=== PATIENT | female | born 1990 | race Caucasian/White ===

== ENCOUNTER → 2017-04-07 08:35 | Outpatient (CLI) | payer OTHER, SELFPAY ==
--- NOTE | 2017-04-07 12:12 | XR_ITS ---
XR ankle RT min 3V HISTORY: Ankle pain ITS.REASON: FOOT PAIN ORDERING PHYSICIAN: Jailene Shea DPM PATIENT AGE: 27 years COMPARISON: None FINDINGS: Weightbearing views are performed No fracture or dislocation. No lytic or blastic change. There is normal mineralization.. The joint spaces are well-preserved. No significant degenerative/arthritic changes. No erosive changes evident. IMPRESSION: Negative ankle, no acute finding
--- NOTE | 2017-04-07 12:12 | XR_ITS ---
XR foot wt bearing LT 2V HISTORY: Foot pain ITS.REASON: FOOT PAIN ORDERING PHYSICIAN: Jailene Shea DPM PATIENT AGE: 27 years COMPARISON: None FINDINGS: Weightbearing views are performed No fracture or dislocation. No lytic or blastic change. There is normal mineralization.. The joint spaces are well-preserved. No significant degenerative/arthritic changes. No erosive changes evident. IMPRESSION: Negative, no acute finding
--- NOTE | 2017-04-07 12:12 | XR_ITS ---
XR foot wt bearing RT 2V HISTORY: Foot pain ORDERING PHYSICIAN: Jailene Shea DPM PATIENT AGE: 27 years COMPARISON: None FINDINGS: Weightbearing views performed No fracture or dislocation. No lytic or blastic change. There is normal mineralization.. The joint spaces are well-preserved. No significant degenerative/arthritic changes. No erosive changes evident. IMPRESSION: Negative, no acute finding
--- NOTE | 2017-04-07 12:12 | XR_ITS ---
XR ankle LT min 3V HISTORY: Ankle pain ITS.REASON: FOOT PAIN ORDERING PHYSICIAN: Jailene Shea DPM PATIENT AGE: 27 years COMPARISON: None FINDINGS: Weightbearing views are performed No fracture or dislocation. No lytic or blastic change. There is normal mineralization.. The joint spaces are well-preserved. No significant degenerative/arthritic changes. No erosive changes evident. IMPRESSION: Negative ankle, no acute finding
== END ==
PROVIDERS: Visit Provider Podiatrist
DX: M79.672 Pain in left foot (principal); M79.671 Pain in right foot
CPT/HCPCS: 73610; 73620

== ENCOUNTER → 2017-05-04 08:28 | Outpatient (CLI) | payer OTHER, SELFPAY ==
--- NOTE | 2017-05-04 08:34 | MR_ITS ---
MR ankle RT wo/w con HISTORY: Right ankle pain, painful to walk and with foot extension, pain laterally ITS.REASON: Right ankle pain ORDERING PHYSICIAN: Jailene Shea DPM PATIENT AGE: 27 years COMPARISON: Radiograph of 04/07/2017 TECHNIQUE: Standard multiplanar multiecho sequences are performed without and with gadolinium enhancement. FINDINGS: No abnormal bone marrow signal intensity is evident. No fracture or bone bruise. The talar dome has an unremarkable appearance. No ligamentous or tendinous injuries are apparent. Specifically, the anterior talofibular ligament does appear intact. There is a small ankle joint effusion with a small amount fluid along the anterior aspect of the ankle joint laterally. The anterior posterior tibiofibular ligaments appear intact. No soft tissue mass or other significant anomalies. No enhancing lesions or masses. IMPRESSION: There is a small ankle joint effusion mainly situated along the anterior aspect and lateral aspect of the ankle joint. Otherwise negative MRI of the ankle with no obvious ligamentous or tendinous abnormalities
== END ==
PROVIDERS: Family Provider Family Medicine; PCP Family Medicine; Visit Provider Podiatrist
DX: M25.571 Pain in right ankle and joints of right foot (principal); G89.29 Other chronic pain
CPT/HCPCS: 73723; A9576

== ENCOUNTER 2017-05-19 16:30 | Outpatient (RCR) | payer OTHER, SELFPAY ==
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
== END 2017-05-19 16:31 | disposition home or self-care (01) ==
LOC: PT 16:30
PROVIDERS: Family Provider Family Medicine; PCP Family Medicine; Visit Provider Podiatrist
DX: S93.401A Sprain of unspecified ligament of right ankle, initial encounter (principal); Q68.8 Other specified congenital musculoskeletal deformities; M25.571 Pain in right ankle and joints of right foot; M25.471 Effusion, right ankle; M71.571 Other bursitis, not elsewhere classified, right ankle and foot; G89.29 Other chronic pain
CPT/HCPCS: 97033; 97035; 97110

== ENCOUNTER → 2017-11-07 07:36 | Outpatient (CLI) | payer OTHER, SELFPAY ==
[2017-11-07 08:10] LABS: Basophils % 0.5 % (0.1-2.0); Eosinophils # 0.3 K/mm3 (0.0-0.4); Eosinophils % 4.4 % (0.1-12.0); Hematocrit 37.6 % (37.0-47.0); Lymphocytes # 2.2 K/mm3 (0.7-4.5); Lymphocytes % 30.5 K/mm3 (10-50); Mean Corpuscular Hemoglobin 27.7 pg (27.0-31.2); Mean Corpuscular Volume 86.5 fl (81-99); Mean Platelet Volume 6.7 fl (7.4-10.4); Monocytes # 0.5 K/mm3 (0.1-1.0); Monocytes % 6.6 % (1.7-9.3); Neutrophils # 4.3 K/mm3 (1.8-7.8); Neutrophils % 58.1 % (37.0-80.0); Platelet Count 321 K/mm3 (142-424); Red Blood Count 4.34 M/mm3 (4.20-5.40); Red Cell Distribution Width 13.9 % (11.5-17.5); White Blood Count 7.4 K/mm3 (4.8-10.8)
[2017-11-07 09:15] LABS: Alanine Aminotransferase 25 U/L (12-78); Albumin Level 3.3 gm/dL (3.4-5.0); Alkaline Phosphatase 104 U/L (46-116); Anion Gap 11.9 mEq/L (5-15); Aspartate Amino Transferase 11 U/L (15-37); Bilirubin,Total 0.3 mg/dL (0.2-1.0); Blood Urea Nitrogen 13 mg/dL (7-18); Calcium 8.5 mg/dL (8.5-10.1); Carbon Dioxide 26 mmol/L (21.0-32.0); Chloride 106 mmol/L (98-107); Creatinine,Serum 0.67 mg/dL (0.55-1.02); Estimated Glomerular Filt Rate 106 ml/min (>60); Free T4 (Free Thyroxine) 0.87 ng/dl (0.76-1.46); GFR (African American) 128 ML/MIN (>60); Globulin 3.2 gm/dl (1.3-3.2); Glucose 82 mg/dL (74-106); Potassium 3.9 mmoL/L (3.5-5.1); Sodium 140 mmol/L (136-145); Thyroid Stimulating Hormone 0.85 uIU/ml (0.358-3.740); Total Protein,Serum 6.5 gm/dL (6.4-8.2)
[2017-11-09 16:47] LABS: Vitamin B12 390 pg/mL (232-1245)
[2017-11-09 16:49] LABS: Vitamin D 25 Hydroxy 39.1 ng/mL (30.0-100.0)
== END ==
PROVIDERS: PCP Family Medicine; Visit Provider Physician Assistant
DX: R53.83 Other fatigue (principal)
CPT/HCPCS: 36415; 80053; 82607; 82652; 84439; 84443; 85025

== ENCOUNTER → 2017-11-10 10:38 | Outpatient (CLI) | payer OTHER, SELFPAY ==
[2017-11-10 13:56] LABS: Reticulocyte % (Auto) 1.5 % (0.9-3.2)
[2017-11-11 08:27] LABS: Iron 93 ug/dL (27-159); UIBC 399 ug/dL (131-425)
[2017-11-11 12:36] LABS: Folate >20.0 ng/mL (>3.0); Iron Saturation 19 % (15-55)
== END ==
PROVIDERS: PCP Family Medicine; Visit Provider Physician Assistant
DX: D64.9 Anemia, unspecified (principal)
CPT/HCPCS: 36415; 82746; 83540; 83550; 85044

== ENCOUNTER → 2018-04-11 09:05 | Outpatient (POV) | payer OTHER, SELFPAY | PROVIDERS: Visit Provider Dermatology | DX: Z00.00 Encounter for general adult medical examination without abnormal findings (principal) ==

== ENCOUNTER → 2018-06-07 15:07 | Outpatient (POV) | payer OTHER, SELFPAY ==
--- NOTE | 2018-06-07 15:17 | HMH.PMCON ---
Assessment and Plan (1) Low back pain Current visit: Yes Status: Chronic Category: Medical Code(s): M54.5 - Low back pain (2) Lumbar radiculopathy, chronic Current visit: Yes Status: Chronic Category: Medical Code(s): M54.16 - Radiculopathy, lumbar region (3) Sacroiliitis Current visit: Yes Status: Chronic Category: Medical Code(s): M46.1 - Sacroiliitis, not elsewhere classified This patient has failed all conservative therapy including previous injections and she is on anti-inflammatories and she is done home exercises for 3 months. She continues to have significant low back pain with radiation into the hips. We will seek approval for MRI to discern pathology of the lumbar spine. She may be a candidate for epidural steroid injections at L5-S1. 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 She has a history of some low back pain and bilateral hip pain. She has had SI joint injections before. Her last round of SI joint injections did not give her much relief. Most of her pain now is in her low back radiating to both hips worse when walking. She does get relief by resting and bending forward. She has no real radiculopathy symptoms. Most of it is in the lower lumbar area. CC: Rojas Chisholm MD [facility] History I have reviewed the patient's past medical history: Yes Medical History: Denies:: Diabetes Mellitus Type 1, Diabetes Mellitus Type 2, Gastroesophageal Reflux Disease(GERD), Hyperlipidemia, Hypertension *Have you ever received a pneumonia vaccine?: No *Have you received a flu vaccine this season?: No Other Medical History: Denies: Hypothyroidism, Sinus Problems, Thyroid Disease Other Surgeries: Yes: , Other Amputation: No Fractures: Yes - *Social History Smoking Status: Never smoker Alcohol Intake: never Alcohol Intake Frequency:: other Substance Use Type: denies use *Occupational Status:: employed Family Hx:: Diabetes Review of Systems - Review of Systems Review of systems:: pertinent systems reviewed and negative unless documented below - *Musculoskeletal Reports back pain, Reports stiffness Meds Home Medications Medication Instructions Recorded Confirmed Type norgestimate 0.25 mg-ethinyl 1 tab PO DAILY 28 Days #28 tab 10/20/17 Rx estradiol 35 mcg tablet cholecalciferol (vitamin D3) 5,000 5,000 unit PO DAILY 11/03/17 History unit capsule magnesium 250 mg tablet 250 mg PO DAILY tab 11/03/17 History kqiwfhcw-iax-mjlm-FA-Ca carb-vit K 1 tab PO DAILY 11/03/17 History 18 mg iron-400 mcg-500 mg tablet venlafaxine ER 37.5 mg 37.5 mg PO DAILY 11/03/17 History capsule,extended release 24 hr fluconazole 150 mg tablet 150 mg PO ONCE #2 tab 05/04/18 Rx Allergies Allergy/AdvReac Type Severity Reaction Status Date / Time Sulfa (Sulfonamide Allergy Unverified 11/03/17 08:19 Antibiotics) Objective - Routine Back/Spine/Pelvis Exam Back/Spine: Present: paraspinal tenderness, vertebral tenderness, pain with lateral flexion, pain with rotation Pelvis: Present: SI joint tenderness Opioid Risk Tool - Opioid Risk Tool-Female Family hx alcohol abuse: N Family hx illegal drugs: N Family hx rx drug abuse: N Personal hx alcohol abuse: N Personal hx illegal drugs: N Personal hx rx drug abuse: N Age: 16-45 Hx of sexual abuse: N Mental health issues-ADD,OCD,Bipolar, etc: N Hx of depression: N Female Risk Score: 1
--- NOTE | 2018-06-07 15:21 | P.CONS_ITS ---
Assessment and Plan (1) Low back pain Current visit: Yes Status: Chronic Category: Medical Code(s): M54.5 - Low back pain (2) Lumbar radiculopathy, chronic Current visit: Yes Status: Chronic Category: Medical Code(s): M54.16 - Radiculopathy, lumbar region (3) Sacroiliitis Current visit: Yes Status: Chronic Category: Medical Code(s): M46.1 - Sacroiliitis, not elsewhere classified This patient has failed all conservative therapy including previous injections and she is on anti-inflammatories and she is done home exercises for 3 months. She continues to have significant low back pain with radiation into the hips. We will seek approval for MRI to discern pathology of the lumbar spine. She may be a candidate for epidural steroid injections at L5-S1. 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 She has a history of some low back pain and bilateral hip pain. She has had SI joint injections before. Her last round of SI joint injections did not give her much relief. Most of her pain now is in her low back radiating to both hips worse when walking. She does get relief by resting and bending forward. She has no real radiculopathy symptoms. Most of it is in the lower lumbar area. CC: Rojas Chisholm MD [facility] History I have reviewed the patient's past medical history: Yes Medical History: Denies:: Diabetes Mellitus Type 1, Diabetes Mellitus Type 2, Gastroesophageal Reflux Disease(GERD), Hyperlipidemia, Hypertension *Have you ever received a pneumonia vaccine?: No *Have you received a flu vaccine this season?: No Other Medical History: Denies: Hypothyroidism, Sinus Problems, Thyroid Disease Other Surgeries: Yes: , Other Amputation: No Fractures: Yes - *Social History Smoking Status: Never smoker Alcohol Intake: never Alcohol Intake Frequency:: other Substance Use Type: denies use *Occupational Status:: employed Family Hx:: Diabetes Review of Systems - Review of Systems Review of systems:: pertinent systems reviewed and negative unless documented below - *Musculoskeletal Reports back pain, Reports stiffness Meds Home Medications Medication Instructions Recorded Confirmed Type norgestimate 0.25 mg-ethinyl 1 tab PO DAILY 28 Days #28 tab 10/20/17 Rx estradiol 35 mcg tablet cholecalciferol (vitamin D3) 5,000 5,000 unit PO DAILY 11/03/17 History unit capsule magnesium 250 mg tablet 250 mg PO DAILY tab 11/03/17 History iqphimtr-dnc-fnao-FA-Ca carb-vit K 1 tab PO DAILY 11/03/17 History 18 mg iron-400 mcg-500 mg tablet venlafaxine ER 37.5 mg 37.5 mg PO DAILY 11/03/17 History capsule,extended release 24 hr fluconazole 150 mg tablet 150 mg PO ONCE #2 tab 05/04/18 Rx Allergies Allergy/AdvReac Type Severity Reaction Status Date / Time Sulfa (Sulfonamide Allergy Unverified 11/03/17 08:19 Antibiotics) Objective - Routine Back/Spine/Pelvis Exam Back/Spine: Present: paraspinal tenderness, vertebral tenderness, pain with lateral flexion, pain with rotation Pelvis: Present: SI joint tenderness
== END ==
PROVIDERS: PCP Family Medicine; Visit Provider Anesthesiology
DX: M54.16 Radiculopathy, lumbar region (principal); M46.1 Sacroiliitis, not elsewhere classified; M54.5 Low back pain
CPT/HCPCS: 99202

== ENCOUNTER → 2018-06-08 11:01 | Outpatient (CLI) | payer OTHER, SELFPAY ==
--- NOTE | 2018-06-08 11:06 | MR_ITS ---
MR lumbar spine wo con, MR 3-d myelogram/MRCP HISTORY: LBP when walking. Symptoms [id number]. No trauma. No prior. ITS.REASON: BACK PAIN ORDERING PHYSICIAN: Rojas Chisholm MD PATIENT AGE: 28 years Comparison: None TECHNIQUE: Standard multiplanar multiecho sequences are performed without contrast. 3-D MIP and myelographic images are also rendered and reviewed FINDINGS: Normal alignment. The spinal cord ends at the L1 level. The disc spaces are well-preserved. No disc herniation canal stenosis or significant degenerative change evident. No neural impingement apparent IMPRESSION: Negative MRI of the lumbar spine
== END ==
PROVIDERS: PCP Family Medicine; Visit Provider Anesthesiology
DX: M54.5 Low back pain (principal)
CPT/HCPCS: 72148; 76376

== ENCOUNTER → 2018-07-20 08:52 | Outpatient (CLI) | payer OTHER, SELFPAY ==
[2018-07-20 10:50] LABS: HCG,Quantitative 1 mIU/mL
== END ==
PROVIDERS: Visit Provider Anesthesiology
DX: Z32.00 Encounter for pregnancy test, result unknown (principal); N91.2 Amenorrhea, unspecified
CPT/HCPCS: 36415; 84702

== ENCOUNTER → 2018-08-15 09:54 | Outpatient (POV) | payer OTHER, SELFPAY | PROVIDERS: Visit Provider Dermatology | DX: Z00.00 Encounter for general adult medical examination without abnormal findings (principal) ==

== ENCOUNTER → 2018-12-25 10:30 | Outpatient (POV) | payer OTHER, SELFPAY | PROVIDERS: PCP Family Medicine; Visit Provider Nurse Practitioner Family | DX: Z00.00 Encounter for general adult medical examination without abnormal findings (principal) ==

== ENCOUNTER → 2019-02-26 11:18 | Outpatient (POV) | payer OTHER, SELFPAY | PROVIDERS: Visit Provider Nurse Practitioner Family | DX: Z00.00 Encounter for general adult medical examination without abnormal findings (principal) ==

== ENCOUNTER → 2019-02-27 09:18 | Outpatient (CLI) | payer OTHER, SELFPAY ==
[2019-02-27 10:29] LABS: Alanine Aminotransferase 39 U/L (12-78); Albumin Level 3.8 gm/dL (3.4-5.0); Alkaline Phosphatase 132 U/L (46-116); Anion Gap 11.7 mEq/L (5-15); Aspartate Amino Transferase 9 U/L (15-37); Bilirubin,Total 0.2 mg/dL (0.2-1.0); Blood Urea Nitrogen 18 mg/dL (7-18); C-Reactive Protein 0.4 mg/dL (0.0-0.9); Calcium 9.3 mg/dL (8.5-10.1); Carbon Dioxide 28 mmol/L (21.0-32.0); Chloride 101 mmol/L (98-107); Creatinine,Serum 0.82 mg/dL (0.55-1.02); Estimated Glomerular Filt Rate 83 ml/min (>60); GFR (African American) 100 ML/MIN (>60); Globulin 3.8 gm/dl (1.3-3.2); Glucose 78 mg/dL (74-106); Potassium 3.7 mmoL/L (3.5-5.1); Sodium 137 mmol/L (136-145); Total Protein,Serum 7.6 gm/dL (6.4-8.2)
[2019-02-27 10:46] LABS: Basophils % 0.4 % (0.1-2.0); Eosinophils # 0.1 K/mm3 (0.0-0.4); Eosinophils % 1.3 % (0.1-12.0); Hematocrit 41.5 % (37.0-47.0); Hemoglobin 13.4 g/dL (12.2-16.2); Lymphocytes # 2.4 K/mm3 (0.7-4.5); Lymphocytes % 25.7 % (10-50); Mean Corpuscular HGB Conc 32.2 g/dL (31.8-35.4); Mean Corpuscular Hemoglobin 27.9 pg (27.0-31.2); Mean Corpuscular Volume 86.6 fl (81-99); Mean Platelet Volume 7.4 fl (7.4-10.4); Monocytes # 0.7 K/mm3 (0.1-1.0); Monocytes % 7.6 % (1.7-9.3); Neutrophils # 6.1 K/mm3 (1.8-7.8); Neutrophils % 64.9 % (37.0-80.0); Platelet Count 367 K/mm3 (142-424); Red Blood Count 4.79 M/mm3 (4.20-5.40); Red Cell Distribution Width 13.3 % (11.5-17.5); White Blood Count 9.4 K/mm3 (4.8-10.8)
[2019-03-01 15:40] LABS: Reticulin IgA Antibody Negative titer (Neg:<1:2.5); Saccharomyces cerevisiae, IgA <20.0 Units (0.0-24.9); Saccharomyces cerevisiae, IgG <20.0 Units (0.0-24.9)
[2019-03-02 09:52] LABS: Tissue Transglutaminase IgA Ab <2
[2019-03-02 09:53] LABS: Deamidated Gliadin Abs, IgA 4; Deamidated Gliadin Abs, IgG 2; Endomysial IgA Antibody N; Tissue Transglutaminase IgG Ab <2
== END ==
PROVIDERS: Visit Provider Nurse Practitioner Family
DX: K59.00 Constipation, unspecified (principal); R19.4 Change in bowel habit; R14.0 Abdominal distension (gaseous)
CPT/HCPCS: 36415; 80053; 83516; 85025; 86140; 86255; 86256; 86671

== ENCOUNTER → 2019-03-06 17:24 | Outpatient (CLI) | payer OTHER, SELFPAY ==
[2019-03-06 17:41] LABS: Basophils # 0.1 K/mm3 (0-0.2); Basophils % 0.6 % (0.1-2.0); Eosinophils # 0.3 K/mm3 (0.0-0.4); Eosinophils % 2.8 % (0.1-12.0); Hemoglobin 13.3 g/dL (12.2-16.2); Lymphocytes % 25.9 % (10-50); Mean Corpuscular HGB Conc 32.4 g/dL (31.8-35.4); Mean Corpuscular Hemoglobin 27.8 pg (27.0-31.2); Mean Corpuscular Volume 85.8 fl (81-99); Mean Platelet Volume 7.1 fl (7.4-10.4); Monocytes # 0.7 K/mm3 (0.1-1.0); Neutrophils # 7.4 K/mm3 (1.8-7.8); Neutrophils % 64.8 % (37.0-80.0); Platelet Count 389 K/mm3 (142-424); Red Blood Count 4.77 M/mm3 (4.20-5.40); Red Cell Distribution Width 13.4 % (11.5-17.5); White Blood Count 11.5 K/mm3 (4.8-10.8)
[2019-03-06 17:59] LABS: Urine Pregnancy, HCG Qual. Negative (Negative)
[2019-03-06 18:29] LABS: Blood Urea Nitrogen 18 mg/dL (7-18); Calcium 8.9 mg/dL (8.5-10.1); Chloride 103 mmol/L (98-107); Creatinine,Serum 0.74 mg/dL (0.55-1.02); Estimated Glomerular Filt Rate 93 ml/min (>60); GFR (African American) 113 ML/MIN (>60); Glucose 89 mg/dL (74-106); Potassium 4.1 mmoL/L (3.5-5.1); Sodium 141 mmol/L (136-145)
[2019-03-06 19:29] LABS: Anion Gap 18.1 mEq/L (5-15); Carbon Dioxide 24 mmol/L (21.0-32.0)
== END ==
PROVIDERS: Visit Provider Nurse Practitioner Obstetrics & Gynecology
DX: Z01.818 Encounter for other preprocedural examination (principal); Z30.09 Encounter for other general counseling and advice on contraception
CPT/HCPCS: 36415; 80048; 81025; 85025

== ENCOUNTER 2019-08-30 20:03 | Emergency (ER) | payer OTHER, SELFPAY ==
[2019-08-30 20:14] LABS: UTC Pregnancy Test, Urine Negative (Negative)
[2019-08-30 20:15] VITALS: BP 131/72; PULSE 78; RESP 19; TEMP 36.8; O2SAT 99; BMI 40.6
--- NOTE | 2019-08-30 20:18 | HMH.EDUTC ---
[facility] [place] Clinical Impression: Migraine Qualifiers: Migraine type: unspecified Status migrainosus presence: without status migrainosus Intractability: not intractable Qualified Code(s): G43.909 - Migraine, unspecified, not intractable, without status migrainosus Disposition: Home, Self-Care Condition on Discharge: Good Instructions: Migraine -- Adult, DI for Migraine Additional Instructions: Go home and lay down and try to sleep off remainder of migraine headache DO NOT TAKE YOUR DULEXIS TONIGHT, YOU WAS GIVEN TORODOL WHICH IS A SIMILAR MEDICATION Return if needed Straight to ER if any life threatening symptoms Follow up with Family doctor if symptoms continue or immediately if worsening Referrals: Jaren Bauer MD [Primary Care Provider] - As needed Time of Disposition: 20:53 Medical Decision Making - Phil Inquiry Pt receiving controlled substance: No Phil was queried for this patient: No Vital Signs: 08/30/19 20:15 Temperature 98.2 F Temperature Source Oral Pulse Rate [Right Brachial] 78 Respiratory Rate 19 Blood Pressure [Right Arm] 131/72 Blood Pressure Mean [Right Arm] 91 Blood Pressure Source [Right Arm] Automatic Cuff Blood Pressure Position [Right Arm] Sitting 02 Sat by Pulse Oximetry 99 Oxygen Delivery Method Room Air - Lab Data Lab results reviewed: Yes: I reviewed the patient's lab results. Lab Results 08/30/19 20:05: [facility] Negative Orders (Tests/Meds): ED MEDICATIONS Discontinued Medications Generic Name Dose Route Start Last Admin Trade Name Congq PRN Reason Stop Dose Admin Diphenhydramine HCl 25 mg 08/30/19 20:26 08/30/19 20:39 Benadryl 50mg/1ml Vial IM 08/30/19 20:27 25 mg ONCE ONE Administration Ketorolac Tromethamine 60 mg 08/30/19 20:26 08/30/19 20:39 Toradol 60mg/2ml Vial IM 08/30/19 20:27 60 mg ONCE ONE Administration Ondansetron HCl 4 mg 08/30/19 20:26 08/30/19 20:39 Zofran 4mg Odt SL 08/30/19 20:27 4 mg ONCE ONE Administration [facility] [place] HPI - General Stated complaint: migraine Time Seen by Provider: 08/30/19 20:18 Mode of Arrival: Ambulatory Source of Information: Patient Limitations: No Limitations Description of Symptoms (Recalled from Triage Doc. by RN): PATIENT C/O HEADACHE SINCE THIS MORNING HEENT Symptoms (Recalled from RN notes): Yes Resp Symptoms (Recalled from RN notes): No Skin Symptoms (Recalled from RN notes): No MS Symptoms (Recalled from RN notes): No Functional Status (Recalled from RN notes): WNL - History of Present Illness Provider Complaint: Patient states that she has had headaches in the past States that she felt the migraine coming on and took some Duexis around 10am this morning and laid down States that she got up around 2pm and took Benadryl State that she is still having her headache and the medication has not helped it at all - Related Data Home Medications Medication Instructions Recorded Confirmed venlafaxine 150 mg 150 mg PO DAILY #30 cap 09/20/18 08/30/19 capsule,extended release 24 hr ARIPiprazole [Abilify 2mg Tablet] 2 mg PO DAILY 08/30/19 08/30/19 Allergies Allergy/AdvReac Type Severity Reaction Status Date / Time Sulfa (Sulfonamide Allergy Verified 03/22/19 08:31 Antibiotics) - Worker's Comp Is this a Worker's Comp case?: No [facility] History - Hepatitis A Screen Drug use history?: No High risk sexual behaviors?: No History of sexually transmitted infection?: No Currently employed?: No Childcare worker?: No Do you have indoor plumbing?: Yes Do you have electricity?: Yes Attestation statement:: This patient has been screened for Hepatitis A risk factors. I have reviewed the patient's past medical history: Yes Medical History: Denies:: Cancer, Diabetes Mellitus Type 1, Diabetes Mellitus Type 2, Gastroesophageal Reflux Disease(GERD), Hyperlipidemia, Hypertension, Internal Pacemaker, MRSA, Seizures Other Medical History: Denies:
[2019-08-30 20:58] VITALS: BP 131/72; PULSE 78; RESP 19; TEMP 36.8; O2SAT 99
== END 2019-08-30 21:00 | disposition home or self-care (01) ==
PROVIDERS: Emergency Provider Nurse Practitioner; PCP Family Medicine
DX: G43.909 Migraine, unspecified, not intractable, without status migrainosus (principal); E03.9 Hypothyroidism, unspecified; Z79.899 Other long term (current) drug therapy
CPT/HCPCS: 81025; 96372; 99201; 99202

== ENCOUNTER → 2019-09-05 11:29 | Outpatient (CLI) | payer OTHER, SELFPAY ==
[2019-09-05 11:59] LABS: Basophils % 0.4 % (0.1-2.0); Eosinophils # 0.2 K/mm3 (0.0-0.4); Eosinophils % 2.3 % (0.1-12.0); Hematocrit 38.6 % (37.0-47.0); Hemoglobin 12.3 g/dL (12.2-16.2); Lymphocytes # 2.5 K/mm3 (0.7-4.5); Lymphocytes % 25.2 % (10-50); Mean Corpuscular Hemoglobin 27.3 pg (27.0-31.2); Mean Corpuscular Volume 85.5 fl (81-99); Monocytes # 0.7 K/mm3 (0.1-1.0); Monocytes % 6.6 % (1.7-9.3); Neutrophils # 6.6 K/mm3 (1.8-7.8); Neutrophils % 65.6 % (37.0-80.0); Platelet Count 355 K/mm3 (142-424); Red Blood Count 4.51 M/mm3 (4.20-5.40); Red Cell Distribution Width 15.4 % (11.5-17.5)
[2019-09-05 12:35] LABS: Chloride 102 mmol/L (98-107)
[2019-09-05 12:36] LABS: Potassium 3.9 mmoL/L (3.5-5.1); Sodium 139 mmol/L (136-145)
[2019-09-05 12:38] LABS: Alanine Aminotransferase 54 U/L (12-78); Aspartate Amino Transferase 36 U/L (14-36); Blood Urea Nitrogen 15 mg/dl (7-17); Estimated Glomerular Filt Rate 99 ml/min (>60); GFR (African American) 120 ML/MIN (>60)
[2019-09-05 12:39] LABS: Albumin Level 4.2 g/dl (3.5-5.0); Albumin/Globulin Ratio 1.6 (1.1-1.8); Alkaline Phosphatase 130 U/L (38-126); Anion Gap 13.9 mEq/L (5-15); Bilirubin,Total 0.2 mg/dl (0.2-1.3); Calcium 9.1 mg/dl (8.4-10.2); Carbon Dioxide 27 mmol/L (22.0-30.0); Globulin 2.6 g/dL (1.3-3.2); Glucose 85 mg/dl (74-100); Total Protein,Serum 6.8 g/dl (6.3-8.2)
[2019-09-05 13:10] LABS: Thyroid Stimulating Hormone 1.07 uIU/mL (0.465-4.68)
[2019-09-05 13:25] LABS: 25-OH Vitamin D, Total 32.8 ng/mL (30-100)
[2019-09-06 09:40] LABS: Vitamin B12 428 pg/mL (232-1245)
== END ==
PROVIDERS: Visit Provider Physician Assistant
DX: R53.83 Other fatigue (principal)
CPT/HCPCS: 36415; 80053; 82306; 82607; 84443; 85025

== ENCOUNTER → 2019-09-07 09:08 | Outpatient (CLI) | payer OTHER, SELFPAY ==
--- NOTE | 2019-09-07 09:15 | CT_ITS ---
PROCEDURE: CT HEAD/BRAIN WO CON CLINICAL INDICATION: HEAD INJURY Head injury with headache/pain, contusion, abrasion or hematoma COMPARISON: No exams were available for comparison TECHNIQUE: Axial images obtained. All CT scans at the facility use one or more dose reduction, viz: automated exposure control, ma/kV adjustment per patient size (including targeted exams where dose is matched to indication, i.e. head), or iterative reconstruction technique. FINDINGS: No midline shift, mass effect, intracranial hemorrhage, hydrocephalus, or extra-axial fluid collection is evident. The calvarium has an unremarkable appearance. No mastoid effusion. No sinus air-fluid level. IMPRESSION: No acute intracranial finding Dictated by: Marshall Hall MD 09/07/2019 09:44 Electronically signed by Marshall Hall MD in [place] 09/07/2019 09:44
== END ==
PROVIDERS: PCP Physician Assistant; Visit Provider Physician Assistant
DX: S09.90XA Unspecified injury of head, initial encounter (principal)
CPT/HCPCS: 70450

== ENCOUNTER → 2019-11-12 16:18 | Outpatient (CLI) | payer OTHER, SELFPAY ==
--- NOTE | 2019-11-12 16:23 | XR_ITS ---
PROCEDURE: XR SHOULDER LT MIN 2V CLINICAL INDICATION: LT SHOULDER PAIN COMPARISON: No exams were available for comparison FINDINGS: No fracture or dislocation. No lytic or blastic change. There is normal mineralization. The joint spaces are well-preserved. No significant degenerative/arthritic changes. No erosive changes evident. Other findings:None. IMPRESSION: No acute findings. Dictated by: Marshall Hall MD 11/12/2019 16:49 Marshall Hall MD in [place] 11/12/2019 16:49
== END ==
PROVIDERS: PCP Physician Assistant; Visit Provider Clinical Nurse Specialist Family Health
DX: M25.512 Pain in left shoulder (principal)
CPT/HCPCS: 73030

== ENCOUNTER 2020-01-06 17:06 | Emergency (ER) | payer OTHER, SELFPAY ==
--- NOTE | 2020-01-06 17:19 | XR_ITS ---
PROCEDURE: XR KNEE LT 3V Referring Doctor: Ankit Vyas Patient Age:29Y CLINICAL INDICATION: INJURED ON TRAMPOLINE Pain left knee jumping on trampoline COMPARISON: No exams were available for comparison FINDINGS: Left knee 3 view: AP lateral oblique nonweightbearing No fracture or dislocation.. No joint effusion evident, normal relationships. No lytic or blastic change. There is normal mineralization. The joint spaces are well-preserved. No significant degenerative/arthritic changes. No erosive changes evident. Other findings:None. Regional soft tissues unremarkable IMPRESSION: No acute findings. Negative left knee Dictated by: Marcos Duarte MD 01/06/2020 19:09 Marcos Duarte MD in [place] 01/06/2020 19:09
[2020-01-06 17:40] VITALS: BP 123/69; PULSE 87; RESP 20; TEMP 36.6; O2SAT 98; BMI 43.0
--- NOTE | 2020-01-06 17:51 | HMH.EDUTC ---
[facility] [place] Clinical Impression: Instability of left knee joint Left knee sprain Qualifiers: Encounter type: initial encounter Involved ligament of knee: unspecified ligament Qualified Code(s): S83.92XA - Sprain of unspecified site of left knee, initial encounter Disposition: Home, Self-Care Condition on Discharge: Good Instructions: How to Use Crutches, DI for Knee Sprain, How to Use a Knee Immobilizer Additional Instructions: Rest the extremity, apply ice for 15 minutes as tolerated three or four times per day, Elevate the extremity as tolerated while you are resting. Take ibuprofen for pain. I sent in a prescription to your pharmacy. Follow up with Dr. Salinas (orthopedics). I put in a referral but you need to call his office and schedule an appointment. Follow up with your regular doctor. GO TO THE ER FOR ANY WORSENING SYMPTOMS Prescriptions: Ibuprofen [Ibuprofen 600mg Tablet] 600 mg PO Q6HP PRN #30 tab PRN Reason: Mild Pain Transmission Status: Received by [facility] Pharm[facility] Referrals: Jraen Bauer MD [Primary Care Provider] - Forms: Work/School Release Time of Disposition: 18:17 Medical Decision Making - Medical Records Medical records reviewed: No: I reviewed the patient's medical records. - Phil Inquiry Pt receiving controlled substance: No Vital Signs: 01/06/20 17:40 01/06/20 18:26 Temperature 97.9 F 97.9 F Temperature Source Oral Pulse Rate 87 Pulse Rate [Right Brachial] 87 Respiratory Rate 20 20 Blood Pressure 123/69 Blood Pressure [Right Arm] 123/69 Blood Pressure Mean [Right Arm] 87 Blood Pressure Source [Right Arm] Automatic Cuff Blood Pressure Position [Right Arm] Sitting 02 Sat by Pulse Oximetry 98 Oxygen Delivery Method Room Air [facility] [place] - General Stated complaint: AO, 01/05/20 On trampoline Left knee pain Time Seen by Provider: 01/06/20 17:51 Mode of Arrival: Ambulatory Source of Information: Patient Limitations: No Limitations Description of Symptoms (Recalled from Triage Doc. by RN): PATIENT C/O POSTERIOR LEFT KNEE PAIN WITH EXTENSION. SHE REPORTS THE PAIN STARTED AFTER SHE WAS JUMPING ON A TRAMPOLINE YESTERDAY HEENT Symptoms (Recalled from RN notes): No Resp Symptoms (Recalled from RN notes): No Skin Symptoms (Recalled from RN notes): No MS Symptoms (Recalled from RN notes): No Functional Status (Recalled from RN notes): WNL - History of Present Illness Provider Complaint: She was jumping on a trampoline yesterday when she began having left knee pain. She denies twisting the knee or coming down on it wrong. Since then she has had left knee pain that is worse with walking and bending the knee. The knee has been unstable and tried to go out on her while she is walking. - Related Data Home Medications Medication Instructions Recorded Confirmed venlafaxine 150 mg 150 mg PO DAILY #30 cap 09/20/18 01/06/20 capsule,extended release 24 hr Previous Rx's Medication Instructions Recorded Ibuprofen [Ibuprofen 600mg 600 mg PO Q6HP PRN #30 tab 01/06/20 Tablet] Allergies Allergy/AdvReac Type Severity Reaction Status Date / Time Sulfa (Sulfonamide Allergy Verified 12/25/19 08:10 Antibiotics) - Worker's Comp Is this a Worker's Comp case?: No [facility] History - Hepatitis A Screen Drug use history?: No High risk sexual behaviors?: No History of sexually transmitted infection?: No Currently employed?: No Childcare worker?: No Do you have indoor plumbing?: Yes Do you have electricity?: Yes Attestation statement:: This patient has been screened for Hepatitis A risk factors. I have reviewed the patient's past medical history: Yes Medical History: Denies:: Cancer, Diabetes Mellitus Type 1, Diabetes Mellitus Type 2, Gastroesophageal Reflux Disease(GERD), Hyperlipidemia, Hypertension, Internal Pacemaker, MRSA, Seizures Other Medical History: Denies: Hypothyroidism, Sinus Problems, Thyroid Disease Other S
[2020-01-06 18:26] VITALS: BP 123/69; PULSE 87; RESP 20; TEMP 36.6; O2SAT 98
== END 2020-01-06 18:30 | disposition home or self-care (01) ==
PROVIDERS: Emergency Provider Nurse Practitioner Family; PCP Family Medicine
DX: S83.92XA Sprain of unspecified site of left knee, initial encounter (principal); Y93.39 Activity, other involving climbing, rappelling and jumping off; W09.8XXA Fall on or from other playground equipment, initial encounter
CPT/HCPCS: 29505; 73562; 99202

== ENCOUNTER → 2020-01-18 08:34 | Outpatient (CLI) | payer OTHER, SELFPAY ==
--- NOTE | 2020-01-18 08:34 | MR_ITS ---
PROCEDURE: MR KNEE LT WO CON CLINICAL INDICATION: left knee pain/ evaluate for meniscal tear UNABLE TO FULLY STRAIGHTEN AND BEND KNEE. KNEE INSTABILITY. MEDIAL SIDED KNEE PAIN. PT WAS AT [facility] AND [facility]. COMPARISON: CR XR KNEE LT 3V from 01/06/2020 TECHNIQUE: Routine multiplanar multi echo sequences are performed without gadolinium enhancement. FINDINGS: The cruciate ligaments appear intact. The collateral ligaments also appear intact. The patellar tendon and quadriceps tendon have an unremarkable appearance. No meniscal tear apparent. No bone bruise. The patellar cartilage is unremarkable. Patellofemoral ligaments have an unremarkable appearance. With small amount fluid noted in the knee joint. IMPRESSION: Unremarkable MRI of the left knee. Dictated by: Mrashall Hall MD 01/20/2020 11:36 Marshall Hall MD in [place] 01/20/2020 11:36
== END ==
PROVIDERS: PCP Family Medicine; Visit Provider Orthopaedic Surgery
DX: M25.562 Pain in left knee (principal)
CPT/HCPCS: 73721

== ENCOUNTER → 2020-02-25 08:01 | Outpatient (CLI) | payer OTHER, SELFPAY ==
--- NOTE | 2020-02-25 08:05 | MR_ITS ---
PROCEDURE: MR SHOULDER LT WO CON CLINICAL INDICATION: LEFT SHOULDER PAIN LT SHOULDER PAIN. LIMITED [id number]. ENTIRE SHOULDER PAIN. COMPARISON: CR XR SHOULDER LT MIN 2V from 11/12/2019 TECHNIQUE: Routine multiplanar multi echo sequences are performed without gadolinium enhancement. FINDINGS: There is thickening of the supraspinatus tendon with slight increase in T2 signal consistent with tendinopathy/tendinosis. There is a small focal area of increased T2 signal involving the supraspinatus tendon posteriorly and could be related to a partial tear intrasubstance. A full-thickness tear or complete tear is not apparent. The infraspinatus, subscapularis, and teres minor tendons are intact. The bicipital tendon is in place. No obvious labral tear. There are scattered areas of increased T2 signal in the axillary region measuring up to 2 by 1.8 cm consistent with adenopathy. Multiple nodes are present in the axilla there is a small amount of fluid in the bicipital tendon sheath which may be seen with tenosynovitis. No significant shoulder joint effusion. Minimal fluid noted in the sub acromial area. No acromioclavicular hypertrophy or subacromial stenosis. IMPRESSION: 1. Tendinopathy/tendinosis of the supraspinatus tendon with suspected partial intrasubstance tear. 2. Small amount fluid in the bicipital tendon sheath which may be seen with tenosynovitis. 3. Axillary adenopathy. This may be better evaluated with chest CT if clinically desired. Dictated by: Marshall Hall MD 02/27/2020 09:28 Marshall Hall MD in [place] 02/27/2020 09:28
== END ==
PROVIDERS: PCP Family Medicine; Visit Provider Anesthesiology
DX: M25.512 Pain in left shoulder (principal)
CPT/HCPCS: 73221

== ENCOUNTER 2020-03-12 14:30 | Outpatient (RCR) | payer OTHER, SELFPAY ==
--- NOTE | 2020-03-05 15:53 | HMH.PTOPEV ---
PT Outpatient Evaluation Rehab PT Outpatient Evaluation Start: 03/05/20 15:29 Freq: Status: Active Protocol: Document 03/05/20 15:29 KENRICK (Rec: 03/05/20 15:53 KENRICK [id number]) Electronically Signed By Alex Mcnair, PT 03/05/20 15:29 Outpatient Therapy Subjective History Subjective History Patient is a 29 year old female presenting to outpatient PT with reports of L shoulder pain of insidious onset starting approximately 8 months ago. She has received 2 steroid injections 08/03 and 10/03. The first injection provided some relief while the second did not per patient report. Most recent imaging indicate possible partial tear of the supraspinatus mm. Patient presents with poor postural awareness. No other comorbidities to report. Chief Complaint Pain,Stiff,Clicks,Weakness Symptom Type Ache,Burning,Shooting Symptoms Relieved By Rest/Positioning,Ice,OTC Meds Symptoms Aggravated By Physical Activity,Lifting Prior Functional Limitations None Current Functional Limitations Reaching,Lifting,Housework, Dressing,Desk Work/Reading, Sleeping,Recreation Activity Symptom Description Constant but Variable Level of pain today (0-10) 5 Pain scale - at its best (0-10) 0 Pain scale - at its worst (0-10) 8 Shoulder/Elbow Eval Shoulder Objective Measurements Palpation Tenderness tenderness shoulder exam standard left tenderness over the bicipital tendon left shoulder exam standard tenderness over the SA bursa shoulder left exam standard Shoulder Palpation Findings Tenderness Shoulder Palpation Overall Comment PHB, ACJ, supraspinatus 3/4 Posture Shoulder Posture Sitting Position (L) Forward,(R) Forward Shoulder Posture Standing Position (L) Forward,(R) Forward Scapula Posture Sitting Position (L) Protracted,(R) Protracted Scapular Posture Standing Position (L) Protracted,(R) Protracted Flexibilty Deficits Pectoralis Minor Muscle Length (R) Moderate Tightness,(L) Moderate Tightness Shoulder ROM Left Shoulder ROM Limitations Muscle Weakness,Pain Shoulder Abduction Active Range of 80 Motion (degrees) Shoulder Abduction Passive Range of 95 Motion (degrees) Shoulder Flexion Active Range of Motion 132 (degrees) Query Text:
== END 2020-03-12 14:35 | disposition home or self-care (01) ==
LOC: PT 14:30
PROVIDERS: PCP Family Medicine; Visit Provider Clinical Nurse Specialist Family Health
DX: M25.512 Pain in left shoulder (principal)
CPT/HCPCS: 20560; 97010; 97014; 97033; 97035; 97110; 97140; 97163; G0283

== ENCOUNTER 2020-03-20 09:02 | Emergency (ER) | payer OTHER, SELFPAY ==
[2020-03-20 09:05] VITALS: BP 126/86; PULSE 89; RESP 14; TEMP 36.9; O2SAT 99; BMI 43.0
[2020-03-20 09:27] LABS: UTC Strep Screen (Rapid) Negative (Negative)
--- NOTE | 2020-03-20 09:29 | HMH.EDUTC ---
[facility] Disposition Clinical Impression: Viral syndrome Pharyngitis Qualifiers: Pharyngitis/tonsillitis etiology: unspecified etiology Qualified Code(s): J02.9 - Acute pharyngitis, unspecified Disposition: Home Health Service Condition on Discharge: Good Instructions: DI for Pharyngitis/Tonsillopharyngitis -- Adult, DI for Viral Syndrome Additional Instructions: Drink plenty of fluids. Take tylenol for pain or fever. Return if you begin to have difficulty breathing. Follow up with your regular doctor. GO TO THE ER FOR ANY WORSENING SYMPTOMS Prescriptions: Azithromycin [Z-Marcos 250mg Tab*] 250 mg PO UD DOSE PK #6 tab Transmission Status: Received by [facility] Referrals: Jaren Bauer MD [Primary Care Provider] - Time of Disposition: 09:33 Medical Decision Making - Medical Records Medical records reviewed: No: I reviewed the patient's medical records. - Phil Inquiry Pt receiving controlled substance: No Vital Signs: 03/20/20 09:05 03/20/20 09:35 Temperature 98.4 F 98.4 F Temperature Source Oral Pulse Rate 89 Pulse Rate [Right Brachial] 89 Respiratory Rate 14 14 Blood Pressure 126/86 Blood Pressure [Right Arm] 126/86 Blood Pressure Mean [Right Arm] 99 Blood Pressure Source [Right Arm] Automatic Cuff Blood Pressure Position [Right Arm] Sitting 02 Sat by Pulse Oximetry 99 Oxygen Delivery Method Room Air - Lab Data Lab results reviewed: Yes: I reviewed the patient's lab results. Lab Results 03/20/20 09:19: Strep Scn Rapid Clinic Negative Orders (Tests/Meds): ORDERS Category Date Time Status Strep Screen Confirmation Stat Micro 03/20/20 09:19 Received [facility] HPI - General Stated complaint: Chills, fever, Sore Throat FRASER Time Seen by Provider: 03/20/20 09:15 Mode of Arrival: Ambulatory Source of Information: Patient Limitations: No Limitations Description of Symptoms (Recalled from Triage Doc. by RN): PATIENT C/O CHILLS, FEVER, BODY ACHES, SORE THROAT. HAD SECOND DOSE OF COVID VACCINE ON TUESDAY. DAUGHTER RECENTLY DIAGNOSED WITH STREP HEENT Symptoms (Recalled from RN notes): Yes Resp Symptoms (Recalled from RN notes): No Skin Symptoms (Recalled from RN notes): No MS Symptoms (Recalled from RN notes): Yes Functional Status (Recalled from RN notes): WNL - History of Present Illness Provider Complaint: She states that since Tuesday evening she has has ran a fever and felt bad. Her throat has been sore. She had her second covid-19 vaccine on Tuesday before she started feeling bad. Her daughter was diagnosed with strep throat on Tuesday. - Related Data Home Medications Medication Instructions Recorded Confirmed venlafaxine 150 mg 150 mg PO DAILY #30 cap 09/20/18 03/20/20 capsule,extended release 24 hr Previous Rx's Medication Instructions Recorded Azithromycin [Z-Marcos 250mg Tab*] 250 mg PO UD DOSE PK #6 tab 03/20/20 Allergies Allergy/AdvReac Type Severity Reaction Status Date / Time Sulfa (Sulfonamide Allergy Verified 01/16/20 10:46 Antibiotics) - Worker's Comp Is this a Worker's Comp case?: No [facility] History - Hepatitis A Screen Drug use history?: No High risk sexual behaviors?: No History of sexually transmitted infection?: No Currently employed?: No Childcare worker?: No Do you have indoor plumbing?: Yes Do you have electricity?: Yes Attestation statement:: This patient has been screened for Hepatitis A risk factors. I have reviewed the patient's past medical history: Yes Medical History: Denies:: Cancer, Diabetes Mellitus Type 1, Diabetes Mellitus Type 2, Gastroesophageal Reflux Disease(GERD), Hyperlipidemia, Hypertension, Internal Pacemaker, MRSA, Seizures Other Medical History: Denies: Hypothyroidism, Sinus Problems, Thyroid Disease Other Surgeries: Yes: , Other. No: Pacemaker Amputation: No Fractures: Yes - Social History Smoking Status: Never smoker Alcohol Intake: never Alcohol In
[2020-03-20 09:35] VITALS: BP 126/86; PULSE 89; RESP 14; TEMP 36.9; O2SAT 99
== END 2020-03-20 09:38 | disposition home health service (06) ==
PROVIDERS: Emergency Provider Nurse Practitioner Family; PCP Family Medicine
DX: B34.9 Viral infection, unspecified (principal); J02.9 Acute pharyngitis, unspecified; E03.9 Hypothyroidism, unspecified; Z88.2 Allergy status to sulfonamides; Z79.899 Other long term (current) drug therapy
CPT/HCPCS: 87880; 99202; G0463

== ENCOUNTER 2020-09-29 09:51 | Emergency (ER) | payer OTHER, SELFPAY ==
[2020-09-29 10:25] VITALS: BP 131/76; PULSE 75; RESP 19; TEMP 36.7; O2SAT 100; BMI 38.6
--- NOTE | 2020-09-29 10:58 | HMH.EDUTC ---
[facility] Disposition Clinical Impression: Encounter for laboratory testing for COVID-19 virus Disposition: Home, Self-Care Condition on Discharge: Good Instructions: DI for COVID-19 (Suspected or Confirmed ), Coronavirus Disease 2019, Preventing the Spread of Coronavirus Discharge Instructions Additional Instructions: *Monitor Temp, Over the counter Motrin or Tylenol as directed/as needed Tylenol every 4 hours and Motrin every 6 hours (as long as your family doctor has told you that you can take it) for fever or pain. and straight to ER if unable to lower temp less than 101.0 after medication given *Warm salt water gargles may help to soothe the throat *Throat Lozenges *Warm fluids like tea with honey may help to soothe the throat *Sleep elevated *Humidifier/Vaporizer Your throat swab was sent for culture. Those results are typically sent to your primary care. Be sure to follow up in 2-3 days with your family doctor/primary care physician if no improvement so they can review those result and treat if necessary. If you don?t have a primary care doctor, I recommend you get one but in the mean time, you will have to return to a walk in clinic Follow up IMMEDIATELY for new or worsening symptoms or no Noticeable improvement over the next 48-72 hours. 911 for difficulty breathing or swallowing You were tested for today for COVID19 your test result should be back in the next 24-48 hours, you may call to the [facility] to see if your test results are back in the next 48 hours [phone] [facility] hours are 9am-9pm You was given a handout with instructions for Self Quarantine and Self isolation for while you wait on test results and what to do if they are positive If you are positive the Health Dept will be contacting you also Make sure to take your Vitamins Vit. C Vit D and Zinc if you can take them Referrals: Jaren Bauer MD [Primary Care Provider] - As needed Forms: Work/School Release Time of Disposition: 11:06 Medical Decision Making - Phil Inquiry Pt receiving controlled substance: No Phil was queried for this patient: No Vital Signs: 09/29/20 10:25 Temperature 98.1 F Temperature Source Oral Pulse Rate [Right Brachial] 75 Respiratory Rate 19 Blood Pressure [Right Arm] 131/76 Blood Pressure Mean [Right Arm] 94 Blood Pressure Source [Right Arm] Automatic Cuff Blood Pressure Position [Right Arm] Sitting 02 Sat by Pulse Oximetry 100 Oxygen Delivery Method Room Air - Lab Data Lab results reviewed: Yes: I reviewed the patient's lab results. Orders (Tests/Meds): ORDERS Category Date Time Status Covid-19 Nasal PCR ([facility]) Routine Lab 09/29/20 10:50 Received [facility] HPI - General Stated complaint: Covid Test; sore throat Time Seen by Provider: 09/29/20 10:58 Mode of Arrival: Ambulatory Source of Information: Patient Limitations: No Limitations Description of Symptoms (Recalled from Triage Doc. by RN): PATIENT C/O SORE THROAT AND HEADACHE HEENT Symptoms (Recalled from RN notes): Yes Resp Symptoms (Recalled from RN notes): No Skin Symptoms (Recalled from RN notes): No MS Symptoms (Recalled from RN notes): No Functional Status (Recalled from RN notes): WNL - History of Present Illness Provider Complaint: Patient states that she has been having sore throat and headache and was recently exposed to someone with COVID States that she wanted to come in and get tested for strep throat and COVID - Related Data Home Medications Medication Instructions Recorded Confirmed venlafaxine 150 mg 150 mg PO DAILY #30 cap 09/20/18 03/20/20 capsule,extended release 24 hr Previous Rx's Medication Instructions Recorded Azithromycin [Z-Marcos 250mg Tab*] 250 mg PO UD DOSE PK #6 tab 03/20/20 Allergies Allergy/AdvReac Type Severity Reaction Status Date / Time Sulfa (Sulfonamide Allergy Verified 01/16/20 10:46 Antibiotics) - Worker's Comp Is this a Worker's Comp case?: No [facility] History - Hepatitis A
[2020-09-29 11:09] VITALS: BP 131/76; PULSE 75; RESP 19; TEMP 36.7; O2SAT 100
[2020-09-29 14:21] LABS: UTC Strep Screen (Rapid) Negative (Negative)
== END 2020-09-29 11:22 | disposition home or self-care (01) ==
PROVIDERS: Emergency Provider Nurse Practitioner; PCP Family Medicine
DX: Z20.822 Contact with and (suspected) exposure to COVID-19 (principal); J02.9 Acute pharyngitis, unspecified; E03.9 Hypothyroidism, unspecified
CPT/HCPCS: 87880; 99203; G0463; U0003

== ENCOUNTER 2020-11-22 09:12 | Emergency (ER) | payer OTHER, SELFPAY ==
[2020-11-22 09:22] VITALS: BP 129/86; PULSE 78; RESP 18; TEMP 36.6; O2SAT 98; BMI 44.9
--- NOTE | 2020-11-22 09:22 | HMH.EDUTC ---
[facility] Disposition Clinical Impression: Pharyngitis Qualifiers: Pharyngitis/tonsillitis etiology: unspecified etiology Qualified Code(s): J02.9 - Acute pharyngitis, unspecified Disposition: Home, Self-Care Condition on Discharge: Good Instructions: Sore Throat, DI for Pharyngitis/Tonsillopharyngitis -- Adult Additional Instructions: Drink plenty of fluids. Take tylenol or ibuprofen for pain or fever. Take the medications as directed. Follow up with your regular doctor. GO TO THE ER FOR ANY WORSENING SYMPTOMS Quarantine until you know the results of your covid-19 test. If it is positive, the health department should call you and give you further instructions about your length of Quarantine and other things. Notify your school or workplace of your results and follow their instructions regarding return to work/school. Prescriptions: Brompheniramine/Pseudoephed/Dm [Bromfed Dm Cough Syrup] 5 ml PO Q6HP PRN #240 ml PRN Reason: Cough Transmission Status: Received by [facility] Amoxicillin [Amoxicillin 500mg Tab] 500 mg PO TID 10 Days #30 tab Transmission Status: Received by [facility] predniSONE [Prednisone 20mg Tab] 20 mg PO BID 3 Days #6 tab Transmission Status: Received by [facility] Referrals: Cristiana Weiner PA [Primary Care Provider] - Forms: Work/School Release Time of Disposition: 09:51 Medical Decision Making - Medical Records Medical records reviewed: No: I reviewed the patient's medical records. - Phil Inquiry Pt receiving controlled substance: No Vital Signs: 11/22/20 09:22 11/22/20 09:35 Temperature 98 F 98 F Temperature Source Oral Pulse Rate 78 Pulse Rate [Left] 78 Respiratory Rate 18 18 Blood Pressure 129/86 Blood Pressure [Right Arm] 129/86 Blood Pressure Mean [Right Arm] 100 02 Sat by Pulse Oximetry 98 - Lab Data Lab results reviewed: Yes: I reviewed the patient's lab results. Orders (Tests/Meds): ORDERS Category Date Time Status Full Resp Panel w/COVID ([facility]) Routine Lab 11/22/20 09:50 Received [facility] HPI - General Stated complaint: sore throat Time Seen by Provider: 11/22/20 09:22 - History of Present Illness Provider Complaint: She c/o sore throat for the past 2 days. She has had chilling, but no documented fever. She works here at the hospital. She denies any known covid-19 exposure, but she has been exposed to strep throat. She has been vaccinated against covid-19. - Related Data Home Medications Medication Instructions Recorded Confirmed venlafaxine 150 mg 150 mg PO DAILY #30 cap 09/20/18 03/20/20 capsule,extended release 24 hr Previous Rx's Medication Instructions Recorded Azithromycin [Z-Marcos 250mg Tab*] 250 mg PO UD DOSE PK #6 tab 03/20/20 Amoxicillin [Amoxicillin 500mg Tab] 500 mg PO TID 10 Days #30 tab 11/22/20 Brompheniramine/Pseudoephed/Dm 5 ml PO Q6HP PRN #240 ml 11/22/20 [Bromfed Dm Cough Syrup] predniSONE [Prednisone 20mg 20 mg PO BID 3 Days #6 tab 11/22/20 Tab] Allergies Allergy/AdvReac Type Severity Reaction Status Date / Time Sulfa (Sulfonamide Allergy Verified 01/16/20 10:46 Antibiotics) [facility] History - Hepatitis A Screen Attestation statement:: This patient has been screened for Hepatitis A risk factors. I have reviewed the patient's past medical history: Yes Medical History: Denies:: Cancer, Diabetes Mellitus Type 1, Diabetes Mellitus Type 2, Gastroesophageal Reflux Disease(GERD), Hyperlipidemia, Hypertension, Internal Pacemaker, MRSA, Seizures Other Medical History: Denies: Hypothyroidism, Sinus Problems, Thyroid Disease Other Surgeries: Yes: , Other. No: Pacemaker Amputation: No Fractures: Yes - Social History Smoking Status: Never smoker Alcohol Intake: never Alcohol Intake Frequency:: other Substance Use Type: denies use Occupational Status: other Housing: house Household Members: spouse, children Family Hx:: Diab
[2020-11-22 09:35] VITALS: BP 129/86; PULSE 78; RESP 18; TEMP 36.6
[2020-11-22 09:55] LABS: Adenovirus,PCR Not Detected (NotDetected); Bordetella Pertussis Not Detected (NotDetected); Chlamydophila Pneumoniae, PCR Not Detected (NotDetected); Coronavirus 19, PCR Not Detected (NotDetected); Coronavirus 229E Not Detected (NotDetected); Coronavirus NL63 Not Detected (NotDetected); Coronavirus OC43 Not Detected (NotDetected); Coronovirus HKU1,PCR Not Detected (NotDetected); Human Metapneumovirus Not Detected (NotDetected); Influenza A, PCR Not Detected (NotDetected); Influenza AH1, 2009 Not Detected (NotDetected); Influenza AH1, PCR Not Detected (NotDetected); Influenza AH3,PCR Not Detected (NotDetected); Influenza B, PCR Not Detected (NotDetected); Mycoplasma Pneumoniae, PCR Not Detected (NotDetected); Parainfluenza 1, PCR Not Detected (NotDetected); Parainfluenza 2, PCR Not Detected (NotDetected); Parainfluenza 3, PCR Not Detected (NotDetected); Parainfluenza 4, PCR Not Detected (NotDetected); Respiratory Syncytial Virus Not Detected (NotDetected); Rhinovirus/Enterovirus Not Detected (NotDetected)
[2020-11-22 11:49] LABS: UTC Strep Screen (Rapid) Negative (Negative)
== END 2020-11-22 10:14 | disposition home or self-care (01) ==
PROVIDERS: Emergency Provider Nurse Practitioner Family; PCP Physician Assistant
DX: J02.9 Acute pharyngitis, unspecified (principal); Z88.2 Allergy status to sulfonamides
CPT/HCPCS: 87581; 87632; 87798; 87880; 99202; C9803; G0463; U0003; U0005

== ENCOUNTER 2021-04-10 13:00 | Outpatient (RCR) | payer OTHER, BC, SELFPAY ==
--- NOTE | 2021-03-19 09:06 | HMH.PTOPEV ---
PT Outpatient Evaluation Rehab PT Outpatient Evaluation Start: 03/19/21 08:25 Freq: Status: Active Protocol: Document 03/19/21 08:25 TRACEE (Rec: 03/19/21 09:04 TRACEE [id number]) Electronically Signed By Usman Clayton, PT 03/19/21 08:25 Outpatient Therapy Subjective History Subjective History Pt reports h/o chronic left shoulder pain for ~18+ months, insidious onset. Pt reports anterior to posterior left shoulder pain w/'certain movements'. Previous MRI of left shoulder (02/15/20) revealed RTC tendinitis, biceps tendinitis. Pt reports limited relief w/injections, limited ROM, and strength d/t pain. Chief Complaint Pain,Stiff,Weakness Symptom Type Ache,Sharp,Dull Symptoms Relieved By Rest/Positioning,OTC Meds Symptoms Aggravated By Physical Activity,Lifting Prior Functional Limitations Reaching,Lifting,Housework, Sleeping Current Functional Limitations Reaching,Lifting,Housework, Sleeping Symptom Description Constant but Variable Level of pain today (0-10) 2 Pain scale - at its best (0-10) 1 Pain scale - at its worst (0-10) 8 Shoulder/Elbow Eval Shoulder Objective Measurements Palpation Tenderness tenderness shoulder exam standard left tenderness over the bicipital tendon left shoulder exam standard Shoulder Palpation Findings Tenderness Shoulder Palpation Overall Comment ant delt., post RTC 3/4, UT 2/ 4 Posture Shoulder Posture Sitting Position (L) Rounded,(R) Rounded Shoulder Posture Standing Position (L) Rounded,(R) Rounded Scapula Posture Sitting Position (L) Protracted,(R) Protracted Scapular Posture Standing Position (L) Protracted,(R) Protracted Flexibilty Deficits Upper Trapezius Muscle Length (L) Mild Tightness Shoulder ROM Left Shoulder Abduction Active Range of 0-110 Motion (degrees) Shoulder Flexion Active Range of Motion 0-135 (degrees) Query Text: Shoulder External Rotation Passive Range 0-80 of Motion (degrees) Shoulder Internal Rotation Passive Range 0-85 of Motion (degrees) Shoulder MMT Lower Trapezius Strength Grade 3+ Fair+ Middle Trapezius Strength Grade 3+ Fair+ Rhomboids Strength Grade 3+ Fair+ Shoulder Abduction Strength Grade 4- Good- Shoulder Flexion Strength Grade 4- Good- Shoulder External Rotation Strength 4 Good Grade
== END 2021-04-10 13:05 | disposition home or self-care (01) ==
LOC: PT 13:00
PROVIDERS: PCP Physician Assistant; Visit Provider Internal Medicine Adolescent Medicine
DX: M25.512 Pain in left shoulder (principal); M75.102 Unspecified rotator cuff tear or rupture of left shoulder, not specified as traumatic
CPT/HCPCS: 20561; 97010; 97014; 97035; 97110; 97163; G0283

== ENCOUNTER → 2021-06-30 15:41 | Outpatient (CLI) | payer OTHER, BC, SELFPAY ==
--- NOTE | 2021-06-30 15:47 | XR_ITS ---
FINAL REPORT CLINICAL HISTORY: ROTATOR CUFF SYNDROME OF LEFT SHOULDER, injured 2 years ago, no sx, continued pain FINDINGS: LEFT SHOULDER: 3 views of the left shoulder were obtained. There is no acute fracture or dislocation. The joint spaces are intact. There is no soft tissue abnormality. IMPRESSION: No acute fracture Reviewed, Interpreted and Dictated by Karri Madera III, MD Transcribed by Claudine Lester Authenticated by Karri Madera III, MD on 06/30/2021 04:30:[address] [facility]
== END ==
PROVIDERS: PCP Internal Medicine Adolescent Medicine; Visit Provider Internal Medicine Adolescent Medicine
DX: M25.512 Pain in left shoulder (principal)
CPT/HCPCS: 73030

== ENCOUNTER → 2021-08-14 12:01 | Outpatient (CLI) | payer OTHER, BC, SELFPAY ==
--- NOTE | 2021-08-14 12:04 | MR_ITS ---
FINAL REPORT CLINICAL HISTORY: UNSPECIFIED ROTATOR CUFF TEAR. PRIOR ABNORMAL MRI 02-25-20. SHOULDER PAIN IS GETTING WORSE. LIMITED ROM. WEAKNESS IN ARM. NUMBNESS IN LEFT HAND. COMPARISON: 02/25/2020 FINDINGS: Multiplanar MR imaging of the left shoulder was performed without contrast. There is an intrasubstance tear involving the posterior distal supraspinatus tendon involving greater than 50%. Findings have progressed as compared to the previous. No full-thickness rotator cuff tear is identified. There is mild AC joint arthrosis. A small amount of fluid is seen in the subacromial/subdeltoid bursa. The glenoid labrum is intact. The long head of the biceps tendon is intact. Small glenohumeral joint effusion is seen. There is no evidence of fracture or dislocation. The musculature is intact. There is no evidence of soft tissue mass. IMPRESSION: Intrasubstance tear of the supraspinatus tendon, progressed since previous. Reviewed, Interpreted and Dictated by Karri Madera III, MD Transcribed by Dorothy Hall Authenticated and [facility]
== END ==
PROVIDERS: PCP Internal Medicine Adolescent Medicine; Visit Provider Internal Medicine Adolescent Medicine
DX: M75.102 Unspecified rotator cuff tear or rupture of left shoulder, not specified as traumatic (principal)
CPT/HCPCS: 73221

== ENCOUNTER 2022-03-30 08:00 | Outpatient (RCR) | payer OTHER, BC, SELFPAY | END 2022-03-30 08:05 | disposition home or self-care (01) | LOC: PT 08:00 | PROVIDERS: PCP Internal Medicine Adolescent Medicine; Visit Provider Physician Assistant Surgical | DX: Z98.890 Other specified postprocedural states (principal); M75.112 Incomplete rotator cuff tear or rupture of left shoulder, not specified as traumatic; M75.22 Bicipital tendinitis, left shoulder; M75.42 Impingement syndrome of left shoulder; M75.52 Bursitis of left shoulder | CPT/HCPCS: 97010; 97014; 97016; 97110; 97140; 97163; 97164; 97530; G0283 ==

== ENCOUNTER → 2022-12-02 09:35 | Outpatient (CLI) | payer OTHER, BC, SELFPAY ==
--- NOTE | 2022-12-02 09:39 | XR_ITS ---
FINAL REPORT CLINICAL HISTORY: foot pain FINDINGS: Left foot Three views were obtained. There is no acute fracture or dislocation. The joint spaces appear normal. No soft tissue abnormality is identified. IMPRESSION: No acute process. Reviewed, Interpreted and Dictated by Karri Madera III, MD Transcribed by Dorothy Hall Authenticated and [facility]
--- NOTE | 2022-12-02 09:39 | XR_ITS ---
FINAL REPORT CLINICAL HISTORY: foot pain FINDINGS: Right foot Three views were obtained. There is no acute fracture or dislocation. The joint spaces appear normal. No soft tissue abnormality is identified. IMPRESSION: No acute process. Reviewed, Interpreted and Dictated by Karri Madera III, MD Transcribed by Dorothy Hall Authenticated and [facility]
== END ==
PROVIDERS: PCP Internal Medicine Adolescent Medicine; Visit Provider Podiatrist
DX: M79.671 Pain in right foot (principal); M79.672 Pain in left foot
CPT/HCPCS: 73630

== ENCOUNTER 2023-07-05 15:59 | Outpatient (CLI) | payer OTHER, BC, SELFPAY ==
--- NOTE | 2023-07-05 16:00 | US_ITS ---
PROCEDURE: US TRANSVAGINAL CLINICAL INDICATION: heavy bleeding COMPARISON: No exams were available for comparison FINDINGS: Transvaginal and transabdominal sonographic images of the pelvis were obtained. UTERUS: 9.4cm x 3.8 cmx 4.1cm anteverted with a combined endometrial thickness of 6.6mm. There is a small amount of fluid within the endometrial cavity. There is a small amount of fluid within the cervical canal. LEFT OVARY: 2.2cmx1.5cmx1.0cm with a volume of 1.6ml. RIGHT OVARY: 2.9 cmx 1.6 cmx1.8 cm with a volume of 4.4ml. There are several small follicles in the right ovary. There is a dominant follicle measuring 1.7 cm x 1.3 cm x 1.5 cm. Both ovaries are seen and appear normal. Doppler flow to both ovaries are seen. There is no fluid in the cul-de-sac. IMPRESSION: 1. Anteverted, bulky uterus. The endometrium is 6.6 mm. 2. There is small amount of fluid within the endometrium and cervical canal. 3. Both ovaries are seen and appear normal. There is a 1.7 cm follicle on the right ovary. The left ovary was difficult to visualize and was seen transabdominally. 4. No fluid in the cul-de-sac. Dictated by: Stan Mills MD 07/05/2023 17:04 Stan Mills MD in [place] 07/05/2023 17:04
== END 2023-07-05 23:59 | disposition home or self-care (01) ==
LOC: RAD 16:00
PROVIDERS: PCP Internal Medicine Adolescent Medicine; Visit Provider Nurse Practitioner Obstetrics & Gynecology
DX: N93.9 Abnormal uterine and vaginal bleeding, unspecified (principal)
CPT/HCPCS: 76830

== ENCOUNTER 2023-08-02 09:42 | Outpatient (CLI) | payer OTHER, BC, SELFPAY ==
[2023-08-02 10:10] LABS: Basophils # 0.1 K/mm3 (0-0.2); Basophils % 1.3 % (0.1-2.0); Eosinophils # 0.2 K/mm3 (0.0-0.4); Eosinophils % 3.4 % (0.1-12.0); Hematocrit 41.4 % (37.0-47.0); Hemoglobin 13.7 g/dL (12.2-16.2); Lymphocytes # 1.9 K/mm3 (0.7-4.5); Lymphocytes % 32.7 % (10-50); Mean Corpuscular HGB Conc 33.1 g/dL (31.8-35.4); Mean Corpuscular Hemoglobin 28.9 pg (27.0-31.2); Mean Corpuscular Volume 87.2 fl (81-99); Mean Platelet Volume 7.3 fl (7.4-10.4); Monocytes # 0.4 K/mm3 (0.1-1.0); Neutrophils # 3.2 K/mm3 (1.8-7.8); Neutrophils % 55.6 % (37.0-80.0); Platelet Count 329 K/mm3 (142-424); Red Blood Count 4.75 M/mm3 (4.20-5.40); Red Cell Distribution Width 14.1 % (11.5-17.5); White Blood Count 5.8 K/mm3 (4.8-10.8)
[2023-08-02 10:34] LABS: Alanine Aminotransferase 43 U/L (12-78); Albumin Level 4.4 g/dl (3.5-5.0); Albumin/Globulin Ratio 1.8 (1.1-1.8); Alkaline Phosphatase 85 U/L (38-126); Anion Gap 10.7 mEq/L (5-15); Aspartate Amino Transferase 30 U/L (14-36); Bilirubin,Total 0.6 mg/dl (0.2-1.3); Blood Urea Nitrogen 15 mg/dl (7-17); Calcium 9.3 mg/dl (8.4-10.2); Carbon Dioxide 27 mmol/L (22.0-30.0); Chloride 105 mmol/L (98-107); Estimated Glomerular Filt Rate 96 ml/min (>60); GFR (African American) 117 ML/MIN (>60); Globulin 2.4 g/dL (1.3-3.2); Glucose 88 mg/dl (74-100); Potassium 3.7 mmoL/L (3.5-5.1); Sodium 139 mmol/L (136-145); Total Protein,Serum 6.8 g/dl (6.3-8.2)
[2023-08-02 10:53] LABS: HCG,Quantitative < 2 mIU/ml (0-5.42)
== END 2023-08-02 23:59 | disposition home or self-care (01) ==
LOC: LAB 09:43
PROVIDERS: PCP Internal Medicine Adolescent Medicine; Visit Provider Nurse Practitioner Obstetrics & Gynecology
DX: N93.8 Other specified abnormal uterine and vaginal bleeding (principal)
CPT/HCPCS: 36415; 80053; 84702; 85025

== ENCOUNTER 2023-08-04 09:13 | Day surgery (SDC) | payer OTHER, BC, SELFPAY ==
[2023-08-02 10:09] VITALS: BMI 40.4
[2023-08-04] VITALS (9 sets, daily range): BP systolic 101–136; BP diastolic 63–75; PULSE 53–71; RESP 14–18; TEMP 36.1–36.9; O2SAT 90–99
[2023-08-04] MEDS: LACTATED RINGERS 1000ML 1,000 ML 25 ML IV (09:43)
[2023-08-04] MEDS: CEFAZOLIN SODIUM 2 GM in 0.9 % SODIUM CHLORIDE 100 ML IV (11:13)
[2023-08-04] MEDS: ROPIVACAINE 0.5% 30ML VIAL 150 MG (11:13)
--- NOTE | 2023-08-04 11:13 | EXP.ANES.CKL ---
[facility] Disclaimer: The information contained in this section may have been updated after the patient was seen, as this information can be updated by other users. Medical History Sacroiliitis Migraine Surgical History History of section, classical Hx of rotator cuff surgery History of tubal ligation Family History Other Diabetes Social History Smoking Status: Never smoker alcohol intake: never substance use type: denies use current occupational status: employed Travel in the last 8 weeks: None household members: spouse and children housing: house caffeine: Yes [facility] Anesthesia Checklist Patient Identification Patient Identification: Verbal (Name & ) Structural Data Admitted From: Home Planned Operative Procedure/s: d/c,hyst Consent for Planned Operative Procedure(s) Verified: Yes NPO Status Verified Time NPO: 00:00 Additional verifications Anesthesia Reactions: No Hx Blood Transfusions: No Airway Assessment Mallampati Score:: Class II C-Spine Mobility Assessed: Yes TMJ Mobility Assessed: Yes Dentition: Good Dentition Neurological Assessment Level of Consciousness: Awake, Alert and Appropriate Anesthesia Plan Anesthesia Risk discussed: Yes Anesthesia Plan: Verified ASA Class: II Anesthesia Type: General
--- NOTE | 2023-08-04 11:33 | EXP.OP.NOTE ---
Date of procedure: 08/04/23 Pre-op Diagnosis:: Menorrhagia, Post-op Diagnosis:: Menorrhagia, Procedure performed:: Hysteroscopy, dilation and curettage, NovaSure ablation Surgeon:: Stan Mills MD NEW PRODUCT TRAINER:: Mejia Monroy Anesthesia: LMA Estimated blood loss (mL): 50 Clinical Note:: She is a 33-year-old lady who complains of extremely heavy periods. She has tried other methods of control and this has not helped with her periods. As result of that she was offered hysteroscopy, dilation and curettage as well as NovaSure ablation. Operative findings:: She had an anteverted slightly bulky uterus that sounded to 9 cm. The length of the endometrial cavity was 6.0 cm and the width was 3.5 cm. Operative note:: She was taken to the operating room where LMA anesthesia was found be adequate. She was prepped and draped in the normal sterile fashion in the lithotomy position. A weighted speculum was placed in the vagina and the anterior lip of the cervix was grasped with a tenaculum. The cervix was then dilated to approximately 6 mm. I then inserted a hysteroscope into the uterine cavity and the findings were as previously dictated. I then performed a gentle curettage with a medium curette. I then sounded the uterus and determine the length of the uterus. I then inserted the NovaSure device and determine the width of the endometrial cavity. The length of the endometrial cavity was 6 cm and the width was 3.5 cm. This was placed into the NovaSure device. I then ran the device through its program. I further inspected the endometrial cavity and was found to be completely charred. I then injected 30 cc of 0.5% ropivacaine at the 3:00, 5:00, 7:00, and 9:00 positions of the cervix. She tolerated procedure well and was taken to the recovery room in excellent condition. All sponge and instrument counts were correct. The estimated blood loss was less than 50 cc. Condition: stable Disposition: PACU Specimens:: Endometrial curettings Complications:: None
--- NOTE | 2023-08-04 11:34 | P.PNANES_ITS ---
[facility] Anesthesia Record Part I Anesthesia Record I Intake, IV Amount: 500 Hydration: Adequate Estimated blood loss (mL): 0 Urine output (mL): 0 Blood Pressure: 129/66 SaO2: 94 Pulse Rate: 67 Airway Patency: Patent Respiratory Rate: 14 Temperature: 97.9 F Patient is:: Awake and Stable Stable to PACU at:: 11:30
--- NOTE | 2023-08-04 13:21 | P.PNANES_ITS ---
[facility] Disclaimer: The information contained in this section may have been updated after the patient was seen, as this information can be updated by other users. Medical History Sacroiliitis Migraine Surgical History History of section, classical Hx of rotator cuff surgery History of tubal ligation Family History Other Diabetes Social History Smoking Status: Never smoker alcohol intake: never substance use type: denies use current occupational status: employed Travel in the last 8 weeks: None household members: spouse and children housing: house caffeine: Yes [facility] Anesthesia Checklist Patient Identification Patient Identification: Verbal (Name & ) Structural Data Admitted From: Home Planned Operative Procedure/s: r foot [place] reconstruction Consent for Planned Operative Procedure(s) Verified: Yes NPO Status Verified Time NPO: 00:00 Additional verifications Anesthesia Reactions: No Hx Blood Transfusions: No Airway Assessment Mallampati Score:: Class II C-Spine Mobility Assessed: Yes TMJ Mobility Assessed: Yes Dentition: Good Dentition Neurological Assessment Level of Consciousness: Awake, Alert and Appropriate Anesthesia Plan Anesthesia Risk discussed: Yes Anesthesia Plan: Verified ASA Class: II Anesthesia Type: General w/block
--- NOTE | 2023-08-05 07:33 | EXP.ANES.II ---
[facility] Anesthesia Record Part II Anesthesia Record Part II Discharge Time: 12:00 Destination: Surgical Day Care (OP Surgery) PACU nurse assessment reviewed?: Yes Patient Condition:: Good Anesthesia Complications:: None Swallowing reflex intact?: Yes Airway Patency: Patent Cyanosis?: No Blood Pressure: 120/74 SaO2: 96 Respiratory Rate: 16 Pulse Rate: 71 Temperature: 97 F Mental Status: Alert & Oriented Pain level:: 0 Nausea and/or vomitting:: None Intake, IV Amount: 0 Hydration: Adequate
[2023-08-05 07:34] VITALS: BP 120/74; PULSE 71; RESP 16; TEMP 36.1; O2SAT 96
== END 2023-08-04 12:31 | disposition home or self-care (01) ==
PROVIDERS: PCP Internal Medicine Adolescent Medicine; Visit Provider Nurse Practitioner Obstetrics & Gynecology
PROC: 0U5B8ZZ Destruction of Endometrium, Via Natural or Artificial Opening Endoscopic (ICD-10-PCS; CPT 58563; principal; 2023-08-04 11:00)
DX: N92.0 Excessive and frequent menstruation with regular cycle (principal)
CPT/HCPCS: 58563; 96374; J0690; J1885; J2250; J2405; J3010; J7120

== ENCOUNTER 2024-08-10 09:21 | Outpatient (CLI) | payer BC, SELFPAY ==
[2024-08-10 16:29] LABS: RPR W/RFX Titers Nonreactive (Nonreactive)
[2024-08-14 06:37] LABS: HSV-1 DNA Negative (Negative); HSV-2 DNA Negative (Negative)
== END 2024-08-10 23:59 | disposition home or self-care (01) ==
LOC: LAB 09:21
PROVIDERS: PCP Nurse Practitioner Family; Visit Provider Obstetrics & Gynecology
DX: N76.0 Acute vaginitis (principal)
CPT/HCPCS: 36415; 86592; 87491; 87529; 87591; 87661; 87798; 87801